=== PATIENT | male | born 2000 | race Caucasian/White ===

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

== ENCOUNTER 2021-02-05 06:48 | Outpatient (CLI) | payer BC ==
[2021-02-05] MEDS ORDERED: Magnevist 469MG/ML 20 ML VIAL ONE (09:32)
== END 2021-02-05 06:49 | disposition home or self-care (01) ==
LOC: BICMRI 06:48
PROVIDERS: ATTEND Nurse Practitioner Acute Care
DX: F07.81 Postconcussional syndrome (principal)
CPT/HCPCS: 70553; A9579